=== PATIENT | female | born 1955 | race African-American/Black ===

== ENCOUNTER → 2016-11-03 | Outpatient (CLI) | payer OTHER ==
[~2016-11-03] MED LIST: AMOXICILLIN PO; ASPIRIN PO; ASPIRIN325 M1 PO; ASPIRIN81 M1 PO; AUGMENTIN PO; AVANDAMET 4 MG/1 TA1 PO; CLARITIN D PO; COLESTID PO; FLEXERIL10 MG PO; GLYBURIDE-METFO1 TA3 PO; HCTZ; HYDROCHLOROTHIA25 MG PO; HYZAAR PO; K-DUR20 ME2 PO; KETOPROFEN PO; LIPITOR; LIPITOR PO; LIPITOR80 MG PO; LORTAB 5/500 TA1 TA1 PO; LOSARTAN-HCTZ1 EACH PO; METFORMIN; MICRO-K PO; NAPROSYN500 MG PO; POTASSIUM CHLO10 ME1 PO; PROVENTIL4 MG PO; PSEUDOEPHEDRIN120 MG PO; TYLOX1 CAP 5/50 DOB; UNKNOWN B/P MED; VICODIN 5/500 T1 TAB PO; VITAMIN D1000 UNIT PO; VOLMAX4 MG PO; ZETIA PO
--- NOTE | ~2016-11-03 | CR58 ---
[facility] A Service of [facility] & [facility] RADIOLOGY TEXT RESULTS PATIENT: AGUSTÍN SANTAMARIA LOCATION: [facility] : 53 UNIT #: [id number] AGE: [address]: Tay Juarez MD SEX: F ORDER DR: [id number] [facility] [address] [place], [place] [address] [id number] O MR#: [id number] Acc #: [id number] NAME: AGUSTÍN SANTAMARIA : 1955 SEX: F STUDY DATE/TIME: 11/03/2016 7:55 UNIT: [facility] ROOM: STUDY DESCRIPTION: CR Cervical Spine 2 or 3 Views Attending Physician: Tay Juarez M.D. Referring Physician: Tay Juarez M.D. Ordering Physician: Tay Juarez M.D. Primary Care Physician: Kwaku Andres M.D. MEDICAL IMAGING REPORT This report is preliminary unless electronic signature is present EXAM Cervical spine INDICATION Cervical spondylolysis. Left upper extremity radiculopathy. Neck pain and stiffness. TECHNIQUE AND COMPARISON Small 3 views of the cervical spine without comparison. FINDINGS There is no acute fracture. There is mild grade 1 anterolisthesis of C4 on C5 (2 mm). There is 2 mm of retrolisthesis of C5 on C6. There is moderate degenerative disc narrowing from C4-5 through C6-7 with some associated osteophyte formation. There is facet arthropathy throughout the cervical spine. Prevertebral soft tissues are within normal limits. IMPRESSION 1. Multilevel degenerative change throughout the cervical spine greatest from C4-5 through C6-7. This includes grade 1 anterolisthesis of C4 on C5 and grade 1 retrolisthesis of C5 on C6. Dictated by... Yo Yuen M.D. THIS IS AN ELECTRONICALLY VERIFIED REPORT Yo Yuen M.D. at 11/03/2016 12:26 PM RAJ/brenda TD: 11/03/2016 10:02 JOB #: [id number] [place] [address] A Service of [facility] & [facility] RADIOLOGY TEXT RESULTS PATIENT: AGUSTÍN SANTAMARIA LOCATION: [facility] #: [id number] : 53 UNIT #: [id number] AGE: [address]: Tay Juarez MD SEX: F ORDER DR: MEDICAL IMAGING REPORT COPY
== END | disposition home or self-care (01) ==
LOC: CRAD 07:43
DX: M47.22 Other spondylosis with radiculopathy, cervical region (principal); M43.12 Spondylolisthesis, cervical region
CPT/HCPCS: 72040

== ENCOUNTER → 2017-02-12 | Outpatient (CLI) | payer OTHER ==
--- NOTE | ~2017-02-12 | CR181 ---
[facility] A Service of [facility] & [facility] RADIOLOGY TEXT RESULTS PATIENT: AGUSTÍN SANTAMARIA LOCATION: [facility] : 53 UNIT #: [id number] AGE: [address]: Beltran Parks MD SEX: F ORDER DR: [id number] [facility] [address] [place], [place] [address] [id number] O MR#: [id number] Acc #: [id number] NAME: AGUSTÍN SANTAMARIA : 1955 SEX: F STUDY DATE/TIME: 02/12/2017 12:03 UNIT: [facility] ROOM: STUDY DESCRIPTION: CR Lumbar Spine 2 or 3 Views Attending Physician: Beltran Parks M.D. Referring Physician: Beltran Parks M.D. Ordering Physician: Beltran Parks M.D. Primary Care Physician: Kwaku Andres M.D. MEDICAL IMAGING REPORT This report is preliminary unless electronic signature is present EXAM Lumbar spine 4 views, including lateral flexion and extension views. HISTORY Spinal stenosis. FINDINGS There is a grade I anterolisthesis at L5-S1, and there is osteopenia and there is some slight discogenic change at the thoracolumbar junction. However, there is no abnormal motion in flexion or extension. IMPRESSION 5-1 grade I anterolisthesis, no abnormal motion. No acute abnormality. Dictated by... Beltran Olson M.D. THIS IS AN ELECTRONICALLY VERIFIED REPORT Beltran Olson M.D. at 02/13/2017 3:52 PM TEV/psc TD: 02/12/2017 17:49 JOB #: [id number] MEDICAL IMAGING REPORT Page 1 of 1 COPY
== END | disposition home or self-care (01) ==
LOC: CRAD 11:42
DX: M48.06 Spinal stenosis, lumbar region (principal); M43.17 Spondylolisthesis, lumbosacral region
CPT/HCPCS: 72100